=== PATIENT | male | born 1995 | race African-American/Black ===

== ENCOUNTER 2020-07-14 04:42 | Day surgery (SDC) | payer BC | END 2020-07-14 12:50 | disposition home or self-care (01) | LOC: JASU-ENDO 04:42 | PROC: 0DB68ZX Excision of Stomach, Via Natural or Artificial Opening Endoscopic, Diagnostic (ICD-10-PCS; principal; 2020-07-14 12:00) | DX: K29.50 Unspecified chronic gastritis without bleeding (principal) | CPT/HCPCS: 88305-TC; 88342-TC ==